=== PATIENT | female | born 1995 | race Caucasian/White ===

== ENCOUNTER 2017-06-14 20:54 | Emergency (ER) | payer OTHER ==
[~2017-06-14] VITALS: Ht 160 cm; Wt 58.6 kg
[2017-06-14 21:08] VITALS: Ht 160 cm; Wt 58.6 kg
[2017-06-14 22:20] VITALS: BP 111/78
== END 2017-06-14 22:20 | disposition home or self-care (01) ==
LOC: ED 20:54
DX: R19.7 Diarrhea, unspecified (principal); R11.10 Vomiting, unspecified; R42 Dizziness and giddiness
CPT/HCPCS: J0500; Q0162